=== PATIENT | female | born 1970 ===

== ENCOUNTER → 2018-12-16 19:50 | Outpatient (REF) | payer OTHER, SELFPAY ==
[2018-12-18 15:40] LABS: Anti Thyroglobulin Antibody 1 IU/mL (< 2); Thyroid Peroxidase Antibodies 15 IU/mL (< 9)
[2018-12-20 10:33] LABS: Triiodothyronine T3 Reverse 17 ng/dL (8-25)
== END ==
LOC: LAB 19:50
PROVIDERS: Visit Provider Naturopath
DX: L65.9 Nonscarring hair loss, unspecified (principal)
CPT/HCPCS: 84482; 86376; 86800